=== PATIENT | male | born 1985 | race Caucasian/White ===

== ENCOUNTER 2020-10-17 02:56 | Emergency (ER) | payer BC ==
[2020-10-17 04:16] LABS: HEMOGLOBIN 14.2 gm/dl (14.0-17.5); RED BLOOD COUNT 4.71 M/UL (4.20-5.50); WHITE BLOOD COUNT 7.9 K/UL (4.5-11.0)
[2020-10-17] MEDS ORDERED: OMNICEF 300 MG300 MG PO (05:57)
== END 2020-10-17 07:30 | disposition home or self-care (01) ==
LOC: ER1 02:56
PROVIDERS: Family Medicine
DX: N20.0 Calculus of kidney (principal); Z79.899 Other long term (current) drug therapy; Z87.442 Personal history of urinary calculi; R93.5 Abnormal findings on diagnostic imaging of other abdominal regions, including retroperitoneum
CPT/HCPCS: 80053; 81001; 83690; 85025; 96365; 96375; 99284; J0696; J1885; J2405